=== PATIENT | female | born 1965 | race Caucasian/White ===

== ENCOUNTER 2016-11-08 21:39 | Observation (INO) ==
[2016-11-09] MEDS ORDERED: Ibuprofen 600 MG TABLET PO PRN ×2 (00:01→12:04)
[2016-11-09] MEDS ORDERED: *HR* OxyCODONE/APAP 5/325 TABLET PO PRN ×2 (00:11→12:04)
[2016-11-09] MEDS ORDERED: *HR* Promethazine 25 MG/ML VIAL IM PRN ×2 (00:11→12:04)
[2016-11-09] MEDS: *HR* Morphine 2 MG/ML SYRINGE IVP PRN ×2 (01:01→07:39)
[2016-11-09] MEDS: 0.9 % Sodium Chloride 1,000 ML IVC SCH ×2 (01:01→07:40)
--- NOTE | 2016-11-09 08:10 | Urology History & Physical ---
Date of Encounter: 11/09/16 Time of Encounter: 08:09 Assessment and Plan (1) Left ureteral stone Current Visit: Yes Status: Acute to OR today for left ureteroscopic stone extraction. History of Present Illness Chief complaint: left flank pain HPI: Ms. Crawford is a 51 year old female who presented to OSH for distal left ureteral stone. pain was poorly controlled. + nausea. + subjective fevers. Past Med Surg Social Fam HX - Past Medical History Psychiatric history: no psych history - Past Surgical History Surgical History: hysterectomy - Social History Smoking Status: Never smoker Alcohol use: none Drug use: none Medications and Allergies Allergies No Known Allergies Allergy (Verified 11/08/16 23:43) Review of Systems - Constitutional fever(s), no chills - EENT Nose, mouth and throat: no dizziness - Cardiovascular no chest pain Exam Initial Vital Signs Temp Pulse Resp BP Pulse Ox 99.5 F 91 14 128/80 96 11/08/16 23:43 11/08/16 23:43 11/08/16 23:43 11/08/16 23:43 11/08/16 23:43 - General physical appearance Present: well developed - Respiratory Present: normal respiratory effort - Cardiovascular Cardiovascular exam IM: RRR - Abdomen Abdomen: Present: soft Urology Results - Labs Abnormal lab results POC Glucose 105 (58-89) H 11/09/16 05:41 All other labs normal. - VTE Documentation of Mechanical Device: Intermittent pneumatic compression device
[2016-11-09] MEDS ORDERED: Lidocaine -MPF 2% 2 ML VIAL ONE (09:49)
[2016-11-09] MEDS ORDERED: *HR* Propofol 200 MG/20 ML VIAL IVP ONE (09:49)
[2016-11-09] MEDS ORDERED: Dexamethasone 4 MG/ML VIAL ONE (09:49)
[2016-11-09] MEDS ORDERED: Ondansetron 4 MG/2 ML VIAL ONE (09:49)
--- NOTE | 2016-11-09 09:49 | Anesthesia Evaluation PreOp ---
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 Other Medical History: Denies Any Significant HX Anesthesia History: No Prior Anesthetic Complications, Past Anesthesia (MICHELLE) : No (MICHELLE) Alcohol Use: none Drug use: none Medications and Allergies Ibuprofen [Motrin] 600 mg PO Q6HR PRN 11/09/16 [History] Ondansetron ODT [Zofran ODT] 4 mg SL Q4HR PRN 11/09/16 [History] Oxycodone HCl/Acetaminophen [Percocet 5-325 mg Tablet] 1 tab PO Q6H PRN [History] Allergies No Known Allergies Allergy (Verified 11/08/16 23:43) - Meds/Allergy Pre-op Review Medications Reviewed: Yes Allergies Reviewed: Yes Beta Blockers on Current Med List: No Anesthesia Exam O2 Sat Height 1.57 m Weight 67.5 kg Weight 67.585 kg O2 Sat by Pulse Oximetry 94 O2 Sat by Pulse Oximetry 94 O2 Sat by Pulse Oximetry 96 Vital Signs Temp Pulse Resp BP Pulse Ox 99.5 F 91 14 128/80 96 11/08/16 23:43 11/08/16 23:43 11/08/16 23:43 11/08/16 23:43 11/08/16 23:43 Vital Signs/O2 Sat, Most Current Temp Pulse Resp BP Pulse Ox 97.9 F 57 16 111/74 94 11/09/16 08:20 11/09/16 08:20 11/09/16 08:20 11/09/16 08:20 11/09/16 08:20 Height: 5'2'' Weight: 148# NPO (# of Hours): > 8 Hrs Pain Scale: 0 Pain Scale Used: Numeric (1 - 10) - HEENT Pupil (Motor): Pupils equal, EOMI Mallampati: III Teeth: Normal Oral Opening: Greater than 3 - FILTERING MACHINE TENDER HELPER LOC: Oriented FILTERING MACHINE TENDER HELPER Motor: Normal RUE, Normal LUE, Normal RLE, Normal LLE, Normal Face FILTERING MACHINE TENDER HELPER Sensory: Normal: RUE, LUE, RLE, LLE, Face - Cardiac Rhythm: Regular Murmur: None JVD: No Carotid Bruit: No - Pulmonary Breath Sounds: bilateral Clear Respiratory Effort: Symmetrical Anesthesia Assess/Plan ASA Score: 1 Modified [place] Scale for Level of Consciousness: Cooperative, oriented, and tranquil Anesthetic Plan: General Autologous Blood: Yes Monitoring Plan: Standard Monitors Recovery Plan: PACU
[2016-11-09] MEDS ORDERED: *HR* FentaNYL (PF) 100 MCG/2 ML VIAL ONE (09:50)
[2016-11-09] MEDS ORDERED: *HR* Midazolam HCl 2 MG/2 ML VIAL ONE (09:50)
[2016-11-09] MEDS ORDERED: ceFAZolin 2,000 MG in D5% in Water (Mini-Bag+) 100 ML IVPB ONE (10:44)
[2016-11-09] MEDS ORDERED: ceFAZolin 2,000 MG in D5% in Water 100 ML IVPB ONE (11:00)
[2016-11-09] MEDS ORDERED: *HR* HYDROmorphone (PF) 1 MG/ML SYRINGE IVP PRN (11:05)
[2016-11-09] MEDS ORDERED: *HR* Promethazine 25 MG/ML VIAL IVP PRN (11:05)
[2016-11-09] MEDS ORDERED: EPHEDrine 50 MG/ML VIAL ONE (11:07)
[2016-11-09] MEDS ORDERED: Ketorolac 30 MG/ML VIAL ONE (11:22)
--- NOTE | 2016-11-09 11:31 | Operative Note ---
Date of procedure: 11/09/16 Pre-op diagnosis: left ureteral stone Post-op diagnosis: same Procedure: Left ureteroscopic laser lithotripsy of stone, left ureteroscopic basket retrieval stone fragment, left 4.8 x 26 cm ureteral stent placement Anesthesia: GETA Surgeon: Glenn Lovett Specimen: Left ureteral stone Condition: stable Disposition: PACU Procedure in Detail: Patient was prepped and draped in normal sterile fashion. Timeout procedure performed. I then inserted the semirigid ureteroscope into the patient's bladder. Cannulated the left ureteral orifice using a sensor wire. I had to dilate the distal left ureter using 8/10 dilation sheath. I could easily see this distal stone on fluoroscopy. I then placed the rigid ureteroscope up to the stone where I used the holmium laser to fragment the stone. All stone fragments were then removed using a nitinol basket. I then replaced a Glidewire up into the left kidney. Patient had significant J hooking of the proximal ureter. I was able to straighten this out using the open-ended ureteral catheter and sensor wire. I then placed a 4.8 x 26 cm stent with good curl seen in the kidney and in the bladder. A string was left for easy removal in 2-3 days.
--- NOTE | 2016-11-09 11:33 | Discharge Summary ---
Date of Encounter: 11/09/16 Time of Encounter: 11:31 - Discharge Diagnosis (1) Left ureteral stone Priority: Primary Status: Acute - Discharge Medications Prescriptions: Oxycodone HCl/Acetaminophen [Percocet 5-325 mg Tablet] 1 tab PO Q6H PRN #15 tablet PRN Reason: Pain Home Medications: Ibuprofen [Motrin] 600 mg PO Q6HR PRN 11/09/16 [History] Ondansetron ODT [Zofran ODT] 4 mg SL Q4HR PRN 11/09/16 [History] Oxycodone HCl/Acetaminophen [Percocet 5-325 mg Tablet] 1 tab PO Q6H PRN #15 tablet 11/09/16 [Rx] Allergies/Adverse Reactions: Allergies No Known Allergies Allergy (Verified 11/08/16 23:43) Procedures and tests throughout hospitalization: Left ureteroscopic stone extraction and left ureteral stent placement on 2016 Labs on day of discharge: Labs from last 24 hours 11/09/16 05:41 POC Glucose 105 H Date of admission: 11/08/16 23:18 Primary care physician: PCP NO Consults: 11/09/16 07:19 Consult to [facility] [CONS] Routine Reason for SW Consult: self pay status Discharging clinician: Glenn Lovett Anticipated date of discharge: 11/09/16 - Patient Status Disposition: Home, Self-Care Condition: Good Functional capacity at discharge: independent ambulation Overall status at discharge: patient is progressing back to baseline - Discharge Instructions Follow Up With: HOLLIE,PCP [Primary Care Provider] - Glenn Lovett MD [Partnered Physician] - (2-3 weeks ) Additional Instructions: [id number] (Rev. 11/08) Page 1 of 2 POST-OPERATIVE HOME GOING INSTRUCTIONS: URETEROSCOPY/STENT/CYSTOSCOPY [facility] [address] [id number] [address] Bari Machado Your post-operative appointment has been scheduled for 1. When you leave Same Day Surgery you may be given: Prescriptions - Please finish all antibiotics. follow- up visit if instructed by your physician. 2. You should drink 6-8 glasses of water per day, as long as you are not on fluid restrictions by another physician. 3. It is very common to have blood and small clots in you urine following surgery. You may also experience urinary tract discomfort, irritation of the bladder and urethra (frequency, urgency, and pain/burning with urination), and occasional inability to control your urine. No sexual intercourse until evaluated by your physician 4. If you have a stent, you can expect pain: In your bladder radiating up to your kidney when, and after, you urinate When lifting something heavy When you turn or bend If you have a stent, you can expect frequency, urgency, and burning with urination and intermittent pink/red colored urine. You can work with a stent in place, but if you do a lot of heavy lifting or moving around you will see more blood in your urine. This is OKAY- just drink more fluids. If a string is taped to your abdomen, penis or thigh, it is connected to your stent. DO NOT pull on, or cut, your stent string, unless otherwise instructed by your physician. 5. Okay for patient to remove stent in 2-3 days. - Diet and Activity Activity: increase activity as tolerated Diet: advance to your usual diet - Hospital Course Hospital course: Ms. Crawford is a 51 year old female who was brought in for observation for left distal ureteral stone secondary to intractable pain. Patient was taken operating room where stone was removed and stent placed. Patient recovered well on the floor was discharged home. Time spent discussing smoking cessation with patient: 3 to 10 minutes - Time Spent with Patient Total time spent providing and/or coordinating discharge services: Less than 30 minutes Exam Initial Vital Signs Temp Pulse Resp BP Pulse Ox 99.5 F 91 14 128/80 96 11/08/16 23:43 11/08/16 23:43 11/08/16 23:43 11/08/16 23:43 11/08/16 23:43 - General physical appearance Present: well developed - Respiratory Present: normal respiratory effort - VTE Documentation of Mechanical Device: Intermittent pneumatic compression device
--- NOTE | 2016-11-09 11:56 | Anesthesia Evaluation Post Op ---
Date of Encounter: 11/09/16 Time of Encounter: 11:55 - Vital Signs Vital Signs: Vital Signs/O2 Sat/Glucose, Most Current Temp Pulse Resp BP Pulse Ox 11/09/16 11:53 72 16 122/64 93 11/09/16 11:43 64 16 102/62 98 11/09/16 11:33 97.3 F L 61 14 94/57 97 11/09/16 08:20 97.9 F 57 16 111/74 94 - Lungs Lungs: Clear Ascult./Percussion - Airway Airway: Non-obstructed - Cardiovascular Regular Rate - Mental Status Mental Status: Alert & Oriented, Answers Appropriately - Pain Pain Scale: 0 - Nausea Vomiting Nausea Vomiting: Not Present - Hydration Hydration: Tolerates oral liquids - Discharge PostOp Status: Discharge Patient to home
[2016-11-09] MEDS ORDERED: 0.9 % Sodium Chloride 1,000 ML IVC SCH (12:04)
[2016-11-09] MEDS ORDERED: *HR* Morphine 2 MG/ML SYRINGE IVP PRN (12:04)
[2016-11-09 13:08] VITALS: BP 128/79
== END 2016-11-09 14:41 | disposition home or self-care (01) ==
LOC: 3ANU
PROVIDERS: ADMIT Urology; ATTEND Urology